=== PATIENT | male | born 1970 | race African-American/Black ===

== ENCOUNTER 2022-03-20 15:20 | Emergency (ER) | payer OTHER ==
[2022-03-20 15:32] VITALS: BP 157/84; PULSE 73; RESP 18; TEMP 98.3
--- NOTE | 2022-03-20 16:36 | ED ---
General Adult HPI - General Chief complaint: Recheck/Abnormal Lab/Rx Stated complaint: lt knee pain Time Seen by Provider: 03/20/22 15:40 Source: patient, RN notes reviewed, old records reviewed Mode of arrival: ambulatory - History of Present Illness Initial comments: This is a 51-year-old male who presents emergency Department after he twisted his knee while coming down some steps. Patient states she's had surgery on that knee previously and he noticed now that it hurts with movement and is noticed some proximal swelling to the knee area. Patient denies any ankle pain or foot pain patient denies any hip pain. Patient has no other complaints at this time. - Related Data Allergies Allergy/AdvReac Type Severity Reaction Status Date / Time trazodone AdvReac Unknown Verified 03/20/22 15:33 Review of Systems ROS Statement: Those systems with pertinent positive or pertinent negative responses have been documented in the HPI. ROS Other: All systems not noted in ROS Statement are negative. Past Medical History Past Medical History: No Reported History History of Any Multi-Drug Resistant Organisms: None Reported Past Surgical History: Orthopedic Surgery Past Psychological History: Depression Smoking Status: Current every day smoker Past Alcohol Use History: None Reported Past Drug Use History: None Reported General Exam - General Exam Comments Initial Comments: GENERAL Patient is well-developed and well-nourished. Patient is in mild distress. EYES Patient's pupils are equal and round. Extraocular motion is intact SKIN Unremarkable NEURO The patient is alert and oriented 3 PYSCH Patient has normal interpersonal interactions. MUSCULOSKELETAL There is an obvious effusion suprapatellar region. Patient has no ligamentous laxity. Course Vital Signs 03/20/22 15:28 Temperature 98.3 F Pulse Rate 73 Respiratory 18 Rate Blood Pressure 157/84 O2 Sat by Pulse 96 Oximetry Medical Decision Making - Medical Decision Making X-ray of the knee shows no acute fracture. There is an effusion. Disposition Clinical Impression: Knee effusion Disposition: HOME SELF-CARE Condition: Good Instructions (If sedation given, give patient instructions): Swollen Knee Joint (ED) Additional Instructions: Patient should follow-up with orthopedics. Patient can ambulate as tolerated Is patient prescribed a controlled substance at d/c from ED?: No Referrals: Nonstaff,Physician [Primary Care Provider] - 1-2 days Time of Disposition: 16:36
--- NOTE | 2022-03-20 17:11 | XR ---
EXAMINATION TYPE: XR knee limited LT DATE OF EXAM: 03/20/2022 4:20 PM INDICATION: Patient age:Male; 51 years old; Reason for study: Knee twisted when he was going downstairs; COMPARISON: None. TECHNIQUE: The Left knee(s) was examined in 3 projections. Frontal, lateral and oblique. FINDINGS: There is a large joint effusion. Osteophyte formation of the tibial plateau and patella are present. There is sclerosis of what is thought to be the medial aspect of the tibial metaphysis. Me asuring up to 3.6 cm. No evidence of fracture. IMPRESSION: 1. Moderate joint effusion likely secondary to underlying soft tissue injury. MRI of the knee would provide further evaluation of the soft tissues. 2. Tibial metaphysis irregular cortical sclerosis. Attention on MRI imaging of the need for underlyi ng intraosseous abnormality. 3. Mild osteoarthrosis of the knee.
== END 2022-03-20 17:27 | disposition home or self-care (01) ==
LOC: EC 15:20
DX: M25.469 Effusion, unspecified knee (principal); F32.A Depression, unspecified; F17.200 Nicotine dependence, unspecified, uncomplicated; Z88.8 Allergy status to other drugs, medicaments and biological substances; X50.1XXA Overexertion from prolonged static or awkward postures, initial encounter; Y93.89 Activity, other specified
CPT/HCPCS: 73560; 99283; L1830